=== PATIENT | female | born 1990 | race Caucasian/White ===

== ENCOUNTER 2022-12-23 17:39 | Outpatient (REF) | payer MEDICAID, SELFPAY ==
[2022-12-23 18:43] LABS: Influenza A PCR NEGATIVE (Negative); Influenza B PCR NEGATIVE (Negative); Resp Syncy Virus RNA Qual PCR NEGATIVE (Negative); SARS COV2 PCR INHOUSE NEGATIVE (Negative)
== END 2022-12-23 17:40 | disposition home or self-care (01) ==
LOC: HO.HHCLNP 17:39
PROVIDERS: Visit Provider General Practice
DX: Z20.822 Contact with and (suspected) exposure to COVID-19 (principal); J06.9 Acute upper respiratory infection, unspecified
CPT/HCPCS: 0241U; 87070

== ENCOUNTER 2023-05-02 16:28 | Outpatient (REF) | payer MEDICAID, SELFPAY ==
[2023-05-03 03:15] LABS: CT PCR NOT DETECTED (Not Detect.); NG PCR NOT DETECTED (Not Detect.)
[2023-05-03 13:21] LABS: BV Int Neg Control Negative (Negative); BV Int Pos Control Positive (Positive)
== END 2023-05-02 16:29 | disposition home or self-care (01) ==
LOC: HO.CHCLNP 16:28
PROVIDERS: Visit Provider Advanced Practice Midwife
DX: N89.8 Other specified noninflammatory disorders of vagina (principal)
CPT/HCPCS: 0353U; 87480; 87510; 87660

== ENCOUNTER 2024-10-16 15:25 | Outpatient (REF) | payer MEDICAID, SELFPAY ==
--- OUTSIDE RECORDS SUMMARY | 2024-10-16 16:18 | XMS_ITS | Encounter Summary ---
Author Organization [employer] Address [address] [place] [address] Care Team Providers Care Glass Designer Name Role Phone Jody Bradshaw MD Primary Care Provider [phone] Encounter Details Date Type Department Care Team (Latest Contact Info) Description 10/16/2024 Travel Social History Tobacco Use Types Packs/Day Years Used Date Smoking Tobacco: Former Alcohol Use Standard Drinks/Week Comments Never 0 (1 standard drink = 0.6 oz pur e alcohol) Depression Answer Date Recorded Patient Health Questionnaire-9 Score 5 06/09/2022 Housing Stability Answer Date Recorded What is your housing situation today? I have jaelyn walters 07/26/[address] you li ve. Do you have problems with any of the following? None of the above 07/26/2024 Food Insecurity Answer Date Recorded Within the past 12 months, y ou worried that your food would run out before you got money to buy more: Never True 07/26/2024 Within the past 12 months,th e food you bought just didn't last and you didn't have enough money to get more: Never True Transportation Answer Date Recorded In the past 12 months, has l ack of transportation kept you from medical appts, meetings, work or from getting things needed for daily living? No 07/26/2024 Utilities Answer Date Recorded In the past 12 months, has t he electric, gas, oil or water company threatened to shut off services in your home? No 07/26/2024 Depression Answer Date Recorded Patient Health Questionnaire-2 Score 1 06/09/2022 Internet Access Answer Date Recorded Internet Access Q1 Yes 07/26/2024 Internet Access Q2 Not on file 07/26/2024 Comments No Sex and Gender Information Value Date Recorded Sex Assigned at Female 04/11/2022 10:20 AM EDT Legal Sex Female 10:20 AM EDT Gender Identity Female 04/11/2022 10:20 AM EDT Sexual Orientation Straight 04/11/2022 10 :20 AM EDT documented as of this encounter Plan of Treatment Upcoming Encounters Date Type Department Care Team (Late st Contact Info) Description 01/20/2025 3:30 PM EDT Office Visit [facility] [address] [place] [address] Jody Bradshaw MD [address] [place] [address] documented as of this encounter Visit Diagnoses Not on filedocumented in this encounter Additional Health Concerns Assessment Noted Time PHQ-9 Depression Total Score: 5 06/09/20 22 11:27 AM EST documented as of this encounter Care Teams Glass Designer Relationship Specialty Start Date End Date Jody Bradshaw MD [address] [place] [address] PCP - General Internal Medicine 06/12/18 documented as of this encounter
--- OUTSIDE RECORDS SUMMARY | 2024-10-16 16:19 | XMS_ITS | Encounter Summary ---
Author Organization [employer] Address [address] [place] [address] Care Team Providers Care Life Coach Name Role Phone Jody Bradshaw MD Primary Care Provider [phone] Reason for Visit * Reason Onset Date Comments Nurse Triage 12/05/2023 Encounter Details Date Type Department Care Team (Late st Contact Info) Description 12/05/2023 Telephone [facility] [address] [place] [address] Jody Bradshaw MD [address] [place] [phone] Nurse Triage Social History Tobacco Use Types Packs/Day Years Used Date Smoking Tobacco: Former Alcohol Use Standard Drinks/Week Comments Never 0 (1 standard drink = 0.6 oz pur e alcohol) Depression Answer Date Recorded Patient Health Questionnaire-9 Score 5 06/09/2022 Depression Answer Date Recorded Patient Health Questionnaire-2 Score 1 06/09/2022 Comments No Sex and Gender Information Value Date Recorded Sex Assigned at Female 04/11/2022 10:20 AM EDT Legal Sex Female 10:20 AM EDT Gender Identity Female 04/11/2022 10:20 AM EDT Sexual Orientation Straight 04/11/2022 10 :20 AM EDT documented as of this encounter Miscellaneous Notes * Telephone Encounter - Wing Jaylan RN - 12/06/2023 10:05 AM EDT Tc to pt to relay PCP's message to have pt stop all medication. Unable to reach pt, left message for pt to call back. * Telephone Encounter - Viktoria Foote RN - 12/05/2023 10:07 AM EDT Call returned to [facility] to triage below. Reports having positive home test on 11/21/23. Per pt last known menses was 10/16/23. Per pt already contacted [facility] for establishing. Per pt has appt on 12/10/23. Per pt no bleeding or spotting. Mild cramping. Per pt having nauseain the morning. Per pt stopped Celexa, methocarbamol and trazodone. after positive test. Pt startedprenatal vitamins. No vomiting. Mild loose stools. Pt advised of disposition, agrees to home care advise. Wants PCP to be made aware of meds stopped and to further advise if continues to hold due to . Reviewed home care advise, ER precautions and reasons to call back. Protocol Used: - Morning Sickness (Nausea and Vomiting of ) (Adult) Protocol-Based Disposition: Home Care Positive Triage Question: * Nausea or vomiting * All higher-acuity triage questions were negative Care Advice Discussed: * Reassurance and Education - Nausea and Vomiting During * Step 1 - Clear Fluids * Step 2 - Diet - Crackers * Step 3 - Diet - Starches, Chicken, Fish * Vitamins for * Protect Your Teeth - Rinse Your Mouth After Vomiting * Reasons To Call Back - Moderate vomiting lasts over 3 days - Severe diarrhea occurs (many watery bowel movements) - Fever, abdomen pain, or vaginal bleeding occur - Unable to keep any liquids down - No urination over 12 hours - No improvement after using morning sickness Care Advice - You become worse * Diet Suggestions for Morning Sickness * Reasons To Call Back - You have more questions - Morning Sickness (Nausea and Vomiting of ) handout sent to [phone] * Telephone Encounter - Madelyn Lopez - 12/05/2023 10:04 AM EDT Symptom: Morning Sickness Outcome: Schedule an urgent appointment (within 1 hour) or talk to a nurse or provider soon Reason: Vomiting everything The caller accepted this outcome Pt stated did a test and came out positive pt don't know if symptoms are because pt stop taking medications due to . documented in this encounter Plan of Treatment Upcoming Encounters Date Type Department Care Team ([facility] st Contact Info) Description 01/20/2025 3:30 PM EDT Office Visit [facility] [address] [place] [address] Jody Bradshaw MD [address] [place] [address] documented as of this encounter Visit Diagnoses Not on filedocumented in this encounter Additional Health Concerns Assessment Noted Time PHQ-9 Depression Total Score: 5 06/09/20 22 11:27 AM EST documented as of this encounter Care Teams Life Coach Relationship Specialty Start Date End Date Jody Bradshaw MD [address] [place] [address] PCP - General Internal Medicine 06/12/18 documented as of this encounter
--- OUTSIDE RECORDS SUMMARY | 2024-10-16 16:19 | XMS_ITS | Clinical Summary ---
Author Organization [employer] Address [address] [place] [address] Care Team Providers Care Corporation Officer Name Role Phone Jody Bradshaw MD Primary Care Provider [phone] Allergies Active Allergy Reactions Criticality Noted Date Comments Amoxicillin Hives Low 06/15/2012 Other reaction(s): hives Medications medroxyPROGESTERo ne (Depo-Provera) 150 MG/ML injection inject 1 milliliter by intramuscular route every 3 months. Bring to office for injection 022 Active Multiple Vitamin (Multi-Vitamin) tablet Take 1 tablet by mouth in the morning. 30 tablet 3 023 2028 Active hydrOXYzine HCl (Atarax) 50 MG tabletIndications :Primary insomnia 1 capsule 3 times a day 90 tablet 5 024 Active cetirizine (ZyrTEC) 10 MG tabletIndications :Allergic contact dermatitis due to other agents Take 1 tablet (10 mg) by mouth Once per day. 30 tablet 5 025 Active methocarbamol (Robaxin) 750 MG tabletIndications :Muscle spasm TAKE 1 TABLET BY MOUTH EVERY 8 HOURS 30 tablet 025 Active cholecalciferol (Vitamin D3) 25 MCG (1000 UT) tabletIndications :Vitamin D deficiency Take 1 tablet (25 mcg) by mouth Once per day. 30 tablet 11 025 Active citalopram (CeleXA) 10 MG tabletIndications :Depression, unspecified depression type Take 1 tablet (10 mg) by mouth Once per day. Dose decreased to 10 mg to take x 5 weeks than stop. 15 tablet 052025 Active venlafaxine XR (Effexor XR) 37.5 MG 24 hr capsuleIndication s:Depression, unspecified depression type Take 1 capsule (37.5 mg) by mouth Once per day. Do not crush or chew. 30 capsule 11 2025 Active acetaminophen (Tylenol 8 Hour) 650 MG ER tablet Take 1 tablet by mouth three times a day as needed for pain 2024 Discontinued(T herapy completed) witch jake-glycerin (Tucks) pad use 1 pad twice daily 2024 Discontinued(T herapy completed) Tivicay 50 MG tablet Take 50 mg by mouth in the morning. 2024 Discontinued(T herapy completed) emtricitabine-ten ofovir DF (Truvada) 200-300 MG tablet Take 1 tablet by mouth in the morning. 2024 Discontinued(T herapy completed) ergocalciferol (Vitamin D2) 1.25 MG (72746 UT) capsule TAKE 1 CAPSULE BY MOUTH EVERY WEEK FOR 12 WEEKS 2024 Discontinued(T herapy completed) ketotifen (Zaditor) 0.025 % ophthalmic solutionIndicatio ns:Conjunctivitis of both eyes, unspecified conjunctivitis type Administer 1 drop into both eyes in the morning and at bedtime. 10 mL 2024 Discontinued(T herapy completed) cetirizine (ZyrTEC) 10 MG tabletIndications :Allergic contact dermatitis due to other agents Take 1 tablet (10 mg) by mouth in the morning. 30 tablet 5 2024 Discontinued(R eorder (will not trigger notification to Pharmacy)) cyclobenzaprine (Flexeril) 5 MG tablet Take 5 mg by mouth in the morning. 2024 Discontinued(T herapy completed) cloNIDine (Catapres) 0.1 MG tabletIndications :Primary insomnia Take 1 tablet (0.1 mg) by mouth every 8 (eight) hours. 30 tablet 5 2024 Discontinued(T herapy completed) methocarbamol (Robaxin) 750 MG tabletIndications :Muscle spasm TAKE 1 TABLET BY MOUTH EVERY 8 HOURS 30 tablet 024 2024 Discontinued(S geraldo effects) cholecalciferol (Vitamin D3) 25 MCG (1000 UT) tablet TAKE 1 TABLET BY MOUTH DAILY 90 tablet 1 024 2024 Discontinued(R eorder (will not trigger notification to Pharmacy)) citalopram (CeleXA) 20 MG tablet TAKE 1 TABLET(20 MG) BY MOUTH IN THE MORNING 30 tablet 5 024 2024 Discontinued(T herapy completed) methocarbamol (Robaxin) 750 MG tabletIndications :Muscle spasm TAKE 1 TABLET(750 MG) BY MOUTH EVERY 8 HOURS 30 tablet 024 2024 Discontinued(T herapy completed) traZODone (Desyrel) 50 MG tabletIndications :Primary insomnia TAKE 1 TABLET(50 MG) BY MOUTH AT BEDTIME 30 tablet 3 024 2024 Discontinued(T herapy completed) Active Problems Problem Noted Date Diagnosed Date Cervical dysplasia 12/23/2022 Overview (12/23/2022): Neg ECC. Pap neg/neg. plan repeat pap in 1 year Mayolpo performed - no lesions, ECC onlymultiple attempts to contact for colpo/pap. Does not keep appts. Pap is she shows up. Will not rebook.05/01/14 richie colpoRICHIE colpo; 3rd missed appt. letter sent.message left to rebook. Letter sent.RICHIE colpo.LGSIL/HPV +. Needs colpo.cotesting.pap 02/07/13 = ASCUS +HPV. Cotesting in 6 mon (August 23).cotesting done.05/24/12-cx bx neg x 2; pap neg. repeat pap 6 mo.persistent lgsil/ascus/lgsil/hgsil since 2005. freq n/s for colpo. Depressive disorder 12/23/2022 Female cystocele 12/23/2022 Mixed stress and urge urinary incontinence 12/23 Paronychia of fourth toe, left 05/19/2022 Assessment & Plan (05/19/2022 11:33 AM EST): Mild, recommended soaks with Epsom salt, also send topical mupirocin, will hold off oral antibiotics. Recommended correct nail cutting and to not use tight shoes. rtc if no improvement. Periorbital dermatitis 05/19/2022 Assessment & Plan (05/19/2022 11:38 AM EST): Mild periorbital dermatitis. Will send low dose steroid, f/u with PCP prn Conjunctivitis of both eyes 05/19/2022 Assessment & Plan (05/19/2022 11:38 AM EST): Mild conjunctivitis ddx allergic vs viral. Recommended using ketotifen, f/u for worsening symptoms or no improvement Vitamin D deficiency 07/01/2021 Bruises easily 04/26/2016 Fatigue 04/26/2016 Encounters Date Type Department Care Team Description 10/16/2024 2:45 PM EDT Office Visit [facility] [address] [place], [place] [phone] Jody Bradshaw MD Vitamin D deficiency (Primary Dx); Allergic contact dermatitis due to other agents; Muscle spasm; Depression, unspecified depression type 10/16/2024 Travel 10/16/2024 Patient Outreach [address] [address] Jody Bradshaw MD Care Coordination ([facility] KANWAL Vazquez- Rescheduled missed initial assessment appt) 10/09/2024 Patient Outreach [address] [phone] Jody Bradshaw MD Pre-visit Planning (Pre visit planning LVM ) 10/04/[address] [phone] Jody Bradshaw MD Care Management ([facility] initial assessment-lvm) 10/03/2024 Patient Outreach [address] [phone] Jody Bradshaw MD Care Coordination (KANWAL Dominguez- [place] Appt reminder) 09/05/2024 Patient Outreach [address] [address] Jody Bradshaw MD Care Coordination ([facility]ANWAL Dominguez-R/S missed CM [place]) 09/04/2024 Refill [facility] [address] [place] [address] Jody Bradshaw MD Muscle spasm; Primary insomnia 08/23/2024 Population Health Risk Score [facility] Department [address] [place] [id number] Provider, Population Health Generic 08/22/2024 Patient Outreach [facility] [address] [place] [address] Jody Bradshaw MD Care Coordination ([facility]/KANWAL Nicole#1- Attempt to R/S missed [place] for CM) 08/09/[address] [address] Jody Bradshaw MD Care Management ([facility] initial assessment-lvm) 08/08/2024 Patient Outreach [facility] [address] [place] [address] Jody Bradshaw MD Care Coordination ([facility]/KANWAL Nicole- CM Initial Assessment appt reminder) 07/26/2024 Patient Outreach [facility] [address] [place] [phone] Jody Bradshaw MD Care Coordination (KANWAL Dominguez- Outreach-Pt agrees to participate) 07/24/2024 Patient Outreach [facility] [address] [place] [address] Jody Bradshaw MD Transition Of Care (Tcm) (HDF unscheduled.) 07/23/[address] [address] Kenisha Fuller Care Management ([facility] chart review) 07/23/2024 Telephone [facility] [address] [place] [address] Jody Bradshaw MD from Last 3 Months Immunizations Name Administration Dates Next Due HPV, Quadrivalent 01/20/2012,03/07/2008,04/12/20 07 HPV, Unspecified 01/28/2006 Hep B, Adolescent or Pediatric 1988 Influenza injectable quadriv alent IIV4 with preservative 03/15/2018,04/26/2016 Influenza, IIV3, injectable 04/27/2006 MMR 01/28/1989 Moderna Covid-19 Vaccine 12+ 10/31/2020,10/04/19 21 Tdap 03/15/2018,12/12/2009 Family History Medical History Relation Name Comments Colon cancer Father Postmenopausal breast cancer Father's Sister two paternal aunts, breast cancer in 70s Relation Name Status Comments Father Father's Sister Social History Tobacco Use Types Packs/Day Years [...] Orientation Straight 04/11/2022 10 :20 AM EDT Last Filed Vital Signs Vital Sign Reading Time Taken Comments Blood Pressure 115/73 10/16/2024 2:49 PM EDT Pulse 82 10/16/2024 2:49 PM EDT Temperature 36.7 ??C (98 ??F) 10/16/2024 2:49 PM EDT Respiratory Rate 20 10/16/2024 2:49 PM EDT Oxygen Saturation 98% 10/16/2024 2:49 PM EDT Inhaled Oxygen Concentration - - Weight 88.9 kg (196 lb) 10/16/2024 2:49 PM EDT Height 154.9 cm (5' 1 ) 10/16/2024 2:49 PM EDT Body Mass Index 37.03 10/16/2024 2:49 PM EDT Plan of Treatment Upcoming Encounters Date Type Department Care Team (Late st Contact Info) Description 01/20/2025 3:30 PM EDT Office Visit [facility] [address] [place] [address] Jody Bradshaw MD [address] [place], [place] [phone] Health Maintenance Due Date Last Done Comments Hepatitis B Vaccines (2 of 3 - 3-dose series) 1988 1988 Family Planning (PISQ) 01/28/2003 Pneumococcal Vaccine: Pediatrics (0 to 5 Years) and At-Risk Patients (6 to 49) Years) (1 of 2 - PCV) 01/28/2007 Depression Screening 06/09/2023 06/09/2022, 06/09/20 COVID-19 Vaccine ( season) 2024 10/31/2020, 10/03/2020 Influenza Vaccine (#1) 2024 8, 03/15/2018, 04/26/2016, Additional history exists Tobacco Screening 11/09/2024 11/10/2023 Alcohol/Substance Use Screening 10/16/2025 10/16/2024 SDOH Screening 10/16/2025 10/16/2024 Cervical Cancer Screening 11/01/2025 HPV/Cotest 11/01/2025 11/01/2022, 06/12, 12/03/2019 Pap Smear 11/01/2025 11/01/2022, 06/12, 06/29/2021, Additional history exists DTaP/Tdap/Td Vaccines (4 - Td or Tdap) 05/02/2034 05/02/2024, 03/15/2018, 12/12/2009 Zoster Vaccines (1 of 2) 01/28/2038 RSV Patients and Patients Aged 60 years or older (1 - 1-dose 75+ series) 01/28/2063 HPV Vaccines Completed 01/20/2012, 02/11, 04/12/2007, Additional history exists HIV Screening Completed 11/01/2022, 06/13, 07/01/2021, Additional history exists Hepatitis C Screening Completed 11/01/2022 , 07/01/2021, 07/01/2021 HIB Vaccines Aged Out No longer eligi ble based on patient's age to complete this topic Hepatitis A Vaccines Aged Out No long er eligible based on patient's age to complete this topic IPV Vaccines Aged Out No longer eligi ble based on patient's age to complete this topic Meningococcal Vaccine Aged Out No carlos randolph eligible based on patient's age to complete this topic RSV under 20 months Aged Out No longe r eligible based on patient's age to complete this topic Rotavirus Vaccines Aged Out No longer eligible based on patient's age to complete this topic Procedures Procedure Name Priority Date/Time Associated Diagnosis Comments HEPATITIS C AB W/REFL TO HCV RNA, QN, PCR Routine 11/01/2022 11:58 AM EDT Screening examination for venereal disease HIV 1/2 ANTIGEN/ANTIBODY, FOURTH GENERATION W/RFL Routine 11/01/2022 11:58 AM EDT Screening examination for venereal disease IMAGE-GUIDED PAP W/AGE BASED SCR,W/CT/NG/TRICH Routine 11/01/2022 11:56 AM EDT Routine cervical smear Screening examination for venereal disease from Last 3 Months or Most Recently Relevant to Health Maintenance Results * Hepatitis C Antibody with Reflex to HCV, RNA, Quantitative, Real-Time PCR (11/01/2022 11:58 AM EDT) Hepatitis C Antibody NON-REACT DARRELL NON-REACT DARRELL [facility] [place] [facility] Index 0.07 <1.00 [facility] [place] [facility] Comment: HCV antibody was non-reactive. There is no laboratory evidence of HCV infection. In most cases, no further action is required. However, if recent HCV exposure is suspected, a test for HCV RNA (test code 98713) is suggested. For additional information please refer to http://education.ZeaVision/faq/PMB59d8 (This link is being provided for informational/ educational purposes only.) Blood Venous blood specimen / Unknown 11/01/2022 11:58 AM EDT 11/01/2022 12:03 PM EDT Gisel Nunez [facility] BLOOD ORDERABLES Leonarda rae Result [facility] [address], [place] [address] [facility] [place] [facility] [address] [place] [address] * HIV-1/2 Antigen and Antibodies, Fourth Generation, with Reflexes (11/01/2022 11:58 AM EDT) HIV Antigen/Antibody, 4th Generation NON-REAC TIVE NON-REAC TIVE [facility] [place] [facility] Comment: HIV-1 antigen and HIV-1/HIV-2 antibodies were not detected. There is no laboratory evidence of HIV infection. PLEASE NOTE: This information has been disclosed to you from records whose confidentiality may be protected by state law. ??If your state requires such protection, then the state law prohibits you from making any further disclosure of the information without the specific written consent of the person to whom it pertains, or as otherwise permitted by law. A general authorization for the release of medical or other information is NOT sufficient for this purpose. ?? For additional information please refer to http://education.ZeaVision/faq/GGT287 (This link is being provided for informational/ educational purposes only.) The performance of this assay has not been clinically validated in patients less than 2 years old. Blood Venous blood specimen / Unknown 11/01/2022 11:58 AM EDT 11/01/2022 12:03 PM EDT Gisel Nunez [facility] BLOOD ORDERABLES Leonarda rae Result [facility] [address], [place] [address] [facility] [address] [place] [address] * Image-Guided Pap with Age-Based Screening??with CT/NG,??Trichomonas (11/01/2022 11:56 AM EDT) Comment [facility] Comment: This order for age-based cervical cancer and STI screening follows ACOG guidelines(PB 168, 140, WIP742). See individual assays for performing site location. Clinical Information: NIL/HPV POS 2019 [facility] LMP: NONE GIVEN [facility] Prev. PAP: PRIOR HX ABN [facility] Prev. BX: NEG COLPO [facility] SOURCE: None given [facility] Statement Of Adequacy: [employer] Comment: Satisfactory for evaluation. Endocervical/transformation zone component present. Interpretation/Re sult: Negative for intraepithelial lesion or malignancy. [facility] COMMENT: This Pap test has been evaluated with computer assisted technology. [employer] Outside Maintenance Worker: Yudelka [employer] Comment: YP, CT(ASCP) CT screening location: [address] ??[address] PATHOLOGIST: [facility] Comment: Con Maciel M.D., Board Certified in Anatomic and Clinical Pathology and Cytopathology (electronic signature) [phone] (Always Message) [facility] [employer] [place] [facility] Comment: EXPLANATORY NOTE: The Pap is a screening test for cervical cancer. It is not a diagnostic test and is subject to false negative and false positive results. It is most reliable when a satisfactory sample, regularly obtained, is submitted with relevant clinical findings and history, and when the Pap result is evaluated along with historic and current clinical information. HPV nRNA E6/E7 Not Detected Not Detected [facility] [place] [facility] Comment: Methodology: Silk Opener-Mediated Amplification This assay detects E6/E7 viral messenger RNA (mRNA) from 14 high-risk HPV types (16,18,31,33,35,39,45,51,52,56,58,59,66,68). Cervical sources are required for HPV testing. If a vaginal source from a patient who has had a total hysterectomy with removal of cervix was submitted, please contact the testing laboratory for alternative testing options. For additional information, please refer to http://[employer].ZeaVision/faq/LUW344k5 (This link if provided for information/ educational purposes only.) Chlamydia trachomatis RNA, TMA, Urogenital NOT DETECTED NOT DETECTED [facility] [place] [employer] Neisseria gonorrhoeae RNA, TMA, Urogenital NOT DETECTED NOT DETECTED [facility] (Always Message) [facility] [employer] [place] [facility] Comment: The analytical performance characteristics of this assay, when used to test SurePath(TM) specimens have been determined by [facility]. The modifications have not been cleared or approved by the FDA. This assay has been validated pursuant to the CLIA regulations and is used for clinical purposes. For additional information, please refer to https://[employer].ZeaVision/faq/PRG877 (This link is being provided for information/ educational purposes only.) Trichomonas vaginalis, QL, TMA, PAP Vial NOT DETECTED NOT DETECTED [facility] [place] [facility] Comment: The analytical performance characteristics of this assay have been determined by [facility]. The modifications have not been cleared or approved by the FDA. This assay has been validated pursuant to the CLIA regulations and is used for clinical purposes. For additional information, please refer to http://education.ZeaVision/ faq/Trichomonastma (This link is being provided for information/ educational purposes only.) Pap Vial 11/01/2022 11:5 6 AM EDT 11/02/2022 7:10 AM EDT Gisel Nunez [facility] CYTOLOGY ORDERABLES F inal Result [facility] [address], [place] [address] [facility] [address] [place] [address] from Last 3 Months or Most Recently Relevant to Health Maintenance [place] [address] [address] [place] [id number] [employer] Officer Relationship Specialty Start Date End Date Jody Bradshaw MD [address] [place] [id number] PCP - General Internal Medicine 06/12/18
--- OUTSIDE RECORDS SUMMARY | 2024-10-16 16:19 | XMS_ITS | Encounter Summary ---
Author Organization [employer] Address [address] 7 [place] [address] Care Team Providers Care Ict Trainer Name Role Phone Jody Bradshaw MD Primary Care Provider [phone] Reason for Visit * Reason Onset Date Comments Drug Test 06/16/2023 Encounter Details Date Type Department Care Team ([facility] st Contact Info) Description 06/16/2023 Telephone [facility] [address] [place] [address] Jody Bradshaw MD [address] [place] [address] Drug Test Social History Tobacco Use Types Packs/Day Years [...] encounter Miscellaneous Notes * Telephone Encounter - Mary Lance RN - 06/19/2023 3:53 PM EST Returned call to pt regarding message below. Pt informed that we do not do labs or drug screenings for [facility]. [facility] has specific locations that are approved to do this type of test and cannot be done in PCP office. Pt needs to call [facility] to determine which sites this can be done at. Pt verbalized understanding and agrees with plan. * Telephone Encounter - Mary Ellen Lidnsay - 06/19/2023 1:42 PM EST Tc from pt returning nurse call * Telephone Encounter - Shania Bonds RN - 06/19/2023 12:23 PM EST TC returned to patient regarding message below. No answer. LM to call us back. Tc from pt requesting Labs & drug test for [facility]. Please contact pt at [phone]. * Telephone Encounter - Mathew Lynch - 06/16/2023 2:38 PM EST Tc from pt requesting Labs & drug test for [facility]. Please contact pt at [phone]. documented in this encounter Plan of Treatment Upcoming Encounters Date Type Department Care Team (Late st Contact Info) Description 01/20/2025 3:30 PM EDT Office Visit [facility] [address] [place] [address] Jody Bradshaw MD [address] [place] [address] documented as of this encounter Visit Diagnoses Not on filedocumented in this encounter Additional Health Concerns Assessment Noted Time PHQ-9 Depression Total Score: 5 06/09/20 22 11:27 AM EST documented as of this encounter Care Teams Ict Trainer Relationship Specialty Start Date End Date Jody Bradshaw MD [address] [place] [address] PCP - General Internal Medicine 06/12/18 documented as of this encounter
--- OUTSIDE RECORDS SUMMARY | 2024-10-16 16:19 | XMS_ITS | Clinical Summary ---
[facility] Organization [facility] Address [address] [place] [address] Care Team Providers Care Pediatric Radiologist Name Role Phone Unavailable Primary Care Provider Unavailabl e Social History Tobacco Use Types Packs/Day Years Used Date Smoking Tobacco: Never Assessed Comments Unknown Sex and Gender Information Value Date Recorded Sex Assigned at Not on file Legal Sex Female 4:33 AM EST Gender Identity Not on file Sexual Orientation Not on file Plan of Treatment Health Maintenance Due Date Last Done Comments DTaP,Tdap,and Td Vaccines (1 - Tdap) 01/28/2007 Hepatitis B Vaccines (1 of 3 - 19+ 3-dose series) 01/28/2007 Cervical Cancer Screening: P ap Smear 01/28/2009 COVID-19 Vaccine (2023-2 5 season) 2024 Influenza Vaccine (Season Ended) 2025 HIB Vaccines Aged Out No longer eligi ble based on patient's age to complete this topic HPV Vaccines Aged Out No longer eligi ble based on patient's age to complete this topic Hepatitis A Vaccines Aged Out No long er eligible based on patient's age to complete this topic IPV Vaccines Aged Out No longer eligi ble based on patient's age to complete this topic MMR Vaccines Aged Out No longer eligi ble based on patient's age to complete this topic Meningococcal ACWY Vaccine Aged Out N o longer eligible based on patient's age to complete this topic Meningococcal B Vaccine Aged Out No l onger eligible based on patient's age to complete this topic Pneumococcal Vaccine: Pediat rics (0 to 5 Years) and At-Risk Patients (6 to 64 Years) Aged Out No longer eligible b ased on patient's age to complete this topic RSV Immunization Patients Un glenda 20 months Aged Out No longer eligible b ased on patient's age to complete this topic Varicella Vaccines Aged Out No longer eligible based on patient's age to complete this topic
--- OUTSIDE RECORDS SUMMARY | 2024-10-16 16:19 | XMS_ITS | Encounter Summary ---
Author Organization [employer] Address [address] [facility] 7t [place] [address] Care Team Providers Care Corner Former Name Role Phone Jody Bradshaw MD Primary Care Provider [phone] Reason for Visit * Reason Comments Care Coordination C3CM/KANWAL Duong- Rescheduled missed initial assessment appt Encounter Details Date Type Department Care Team (Latest Contact Info) Description 10/16/2024 Patient Outreach [facility] [address] [place] [address] Jody Bradshaw MD [address] [place] [address] Care Coordination (KANWAL Dominguez- Rescheduled missed initial assessment appt) Social History Tobacco Use Types Packs/Day Years [...] AM EDT documented as of this encounter Progress Notes * Aurelia Lindsay - 10/16/2024 8:56 AM EDT CHW Aurelia Lindsay, placed [facility]bound [facility] to reschedule missed initial assessment appt on 10/04/2024 for CM /CHW program services. Patient's name and was confirmed. Patient agrees to participate in program. New Appt. for initial assessment scheduled for 11/06/2024@ 1PM via telephone with CM Kenisha Fuller RN. CHW reinforced direct contact information for any additionalquestions or concerns and extended clinic hours on Mondays and Wednesdays, and Walk-In Urgent Care Located in [facility]. Patient provided with after-hours line for [facility], , which offer night time triage service and option to transfer to monitor tech provider if needed. Patient verbalizes understanding, and able to repeat back to insurance writer. documented in this encounter Plan of Treatment Upcoming Encounters Date Type Department Care Team ([facility] st Contact Info) Description 01/20/2025 3:30 PM EDT Office Visit [facility] MED & PEDS [address] [place] [address] Jody Bradshaw MD [address] [place] [address] documented as of this encounter Visit Diagnoses Not on filedocumented in this encounter Additional Health Concerns Assessment Noted Time PHQ-9 Depression Total Score: 5 06/09/20 22 11:27 AM EST documented as of this encounter Care Teams Corner Former Relationship Specialty Start Date End Date Jody Bradshaw MD [address] [place] [address] PCP - General Internal Medicine 06/12/18 documented as of this encounter
--- OUTSIDE RECORDS SUMMARY | 2024-10-16 16:19 | XMS_ITS | Encounter Summary ---
Author Organization [employer] Address [address] 7[address] [place] [address] Care Team Providers Care Superintendent Fish Hatchery Name Role Phone Jody Bradshaw MD Primary Care Provider [phone] Encounter Details Date Type Department Care Team (Late st Contact Info) Description 07/23/2024 Telephone [facility]C MED & PEDS [address] [place], [place] [phone] Jody Bradshaw MD [address] [place] [address] Social History Tobacco Use Types Packs/Day Years [...] encounter Miscellaneous Notes * Telephone Encounter - Odette Elizondo - 07/23/2024 10:00 AM EST Tc from pt calling to establish care for her . Pt gave on 07/22/24. Lens Edge Grinder Machine tala bowers a message to hemodialysis patient care specialist. Contact pt at [phone] documented in this encounter Plan of Treatment Upcoming Encounters Date Type Department Care Team (Late st Contact Info) Description 01/20/2025 3:30 PM EDT Office Visit [facility] CHC MED & PEDS [address] [place] [address] Jody Bradshaw MD [address] [place] [address] documented as of this encounter Visit Diagnoses Not on filedocumented in this encounter Additional Health Concerns Assessment Noted Time PHQ-9 Depression Total Score: 5 06/09/20 22 11:27 AM EST documented as of this encounter Care Teams Superintendent [employer] Hatcher[employer] Relationship Specialty Start Date End Date Jody Bradshaw MD [address] [place] [address] PCP - General Internal Medicine 06/12/18 documented as of this encounter
--- OUTSIDE RECORDS SUMMARY | 2024-10-16 16:19 | XMS_ITS | Encounter Summary ---
Author Organization [employer] Address [address] [place] [address] 7 [place] [address] Care Team Providers Care Water Server Name Role Phone Jody Bradshaw MD Primary Care Provider [phone] Reason for Visit * Reason Comments Med Refill Encounter Details Date Type Department Care Team (Late Contact Info) Description 06/14/2023 Refill [facility] MED & PEDS [address] [place] [address] Jody Bradshaw MD [address] [place] [address] Muscle spasm; Primary insomnia Social History Tobacco Use Types Packs/Day Years [...] Encounters Date Type Department Care Team (Late Contact Info) Description 01/20/2025 3:30 PM EDT Office Visit [facility] MED & PEDS [address] [place] [address] Jody Bradshaw MD [address] [place] [address] documented as of this encounter Visit Diagnoses Diagnosis Muscle spasm Spasm of muscle Primary insomnia Persistent disorder of initiating or maintaining sleep documented in this encounter Additional Health Concerns Assessment Noted Time PHQ-9 Depression Total Score: 5 06/09/20 22 11:27 AM EST documented as of this encounter Care Teams Water Server Relationship Specialty Start Date End Date Jody Bradshaw MD [address] [place] [id number] PCP - General Internal Medicine 06/12/18 documented as of this encounter
--- OUTSIDE RECORDS SUMMARY | 2024-10-16 16:19 | XMS_ITS | Encounter Summary ---
Author Organization [employer] Address [address] [facility] 7 [place] [address] Care Team Providers Care Blood Bank Technologist Name Role Phone Jody Bradshaw MD Primary Care Provider [phone] Reason for Visit * Reason Onset Date Comments Nurse Triage 05/02/2023 Encounter Details Date Type Department Care Team ([facility] st Contact Info) Description 05/02/2023 Telephone C [facility] MED & PEDS [address] [place] [address] Jody Bradshaw MD [address] [place] [address] Nurse Triage Social History Tobacco Use Types [...] encounter Miscellaneous Notes * Telephone Encounter - Aretha Castelan RN - 05/02/2023 1:27 PM EST Triage call Pt reports foul odor, yellow vaginal drainage since 04/27/23. Now Pt reports itchiness has gotten worse. Pt has not tried OTC products just wanted to be seen by provider. Apt with ANTONELLA Nunez 05/02/23 @ 345pm Insurance is verified as active prior to booking. Pt agrees with disposition. Protocol Used: Vaginal Symptoms (Adult) Protocol-Based Disposition: See in Office or Video Visit within 3 Days Positive Triage Questions: * Vaginal odor (bad smell) not improved > 3 days following Care Advice * Patient wants to be seen * All higher-acuity triage questions were negative Care Advice Discussed: * Reasons To Call Back - Vaginal discharge becomes yellow or green - Vaginal discharge becomes foul smelling or itchy - Fever or abdomen pain occur - You become worse * Telephone Encounter - Mary Ellen Lindsay - 05/02/2023 1:02 PM EST Symptom: Vaginal Symptoms - Not Bleeding Outcome: Schedule an urgent appointment (within 4 hours) or talk to a nurse or provider soon Reason: Foul-smelling vaginal discharge The caller accepted this outcome Please contact pt at [phone] documented in this encounter Plan of Treatment Upcoming Encounters Date Type Department Care Team (Late st Contact Info) Description 01/20/2025 3:30 PM EDT Office Visit [facility] MED & PEDS [address] [place] [address] Jody Bradshaw MD [address] [place] [address] documented as of this encounter Visit Diagnoses Not on filedocumented in this encounter Additional Health Concerns Assessment Noted Time PHQ-9 Depression Total Score: 5 06/09/20 22 11:27 AM EST documented as of this encounter Care Teams Blood Bank Technologist Relationship Specialty Start Date End Date Jody Bradshaw MD [address] [place] [address] PCP - General Internal Medicine 06/12/18 documented as of this encounter
--- OUTSIDE RECORDS SUMMARY | 2024-10-16 16:19 | XMS_ITS | Encounter Summary ---
Author Organization [employer] Address [address] [facility] 7t [place] [address] Care Team Providers Care Cashier Parking Lot Name Role Phone Jody Bradshaw MD Primary Care Provider [phone] Encounter Details Date Type Department Care Team (Late st Contact Info) Description 06/23/2022 Orders Only [facility] [address] [place] [address] Jody Bradshaw MD [address] [place] [address] Social History Tobacco Use Types Packs/Day Years Used Date Smoking Tobacco: Every Day Cigarettes Alcohol Use Standard Drinks/Week Comments Never 0 (1 standard drink = 0.6 oz pur e alcohol) Depression Answer Date Recorded Patient Health Questionnaire-9 Score 5 06/09/2022 Depression Answer Date Recorded Patient Health Questionnaire-2 Score 1 06/09/2022 Comments Unknown Sex and Gender Information Value Date Recorded Sex Assigned at Female 04/11/2022 10:20 AM EDT Legal Sex Female 10:20 AM EDT Gender Identity Female 04/11/2022 10:20 AM EDT Sexual Orientation Straight 04/11/2022 10 :20 AM EDT COVID-19 Exposure Response Date Recorded In the last 10 days, have yo u been in contact with someone who was confirmed or suspected to have Coronavirus/COVID-19? No / Unsure 06/09/2022 10:41 AM EST documented as of this encounter Plan of Treatment Upcoming Encounters Date Type Department Care Team (Late st Contact Info) Description 01/20/2025 3:30 PM EDT Office Visit [facility] CHC MED & PEDS [address] [place] [address] Jody Bradshaw MD [address] [place] [address] documented as of this encounter Procedures Procedure Name Priority Date/Time Associated Diagnosis Comments SARS COV2/INFLUENZA A/B AND RSV RNA QL NAAT Routine 12/23/2022 2:50 PM EDT CULTURE, THROAT Routine 12/23/2022 2:50 PM EDT documented in this encounter Results * Culture, Throat (12/23/2022 2:50 PM EDT) 12/23/2022 2:50 PM EDT 12/23/2022 6:11 PM EDT Comment:Throat Narrative [facility] - 12/25/2022 12:00 PM EDT Throat Culture No Group A Beta-hemolytic Streptococci isolated. Specimen Source: Throat [facility] Exter nal Provider LAB MICROBIOLOGY - GENERAL ORDERABLES Final Result [facility] [address] [place] [address] [phone] * SARS-CoV-2 RNA, Influenza A/B, and RSV RNA, Ql NAAT (12/23/2022 2:50 PM EDT) Influenza A PCR NEGATIVE Negative [facility] Influenza B PCR NEGATIVE Negative [facility] Resp Syncy Virus RNA Qual PCR NEGATIVE Negative [facility] SARS COV2 PCR NEGATIVE Negative [facility] Comment:All test results mus t be correlated with clinical findings.Negative results do not preclude SARS-CoV2, influenza Avirus, influenza B virus and/or RSV infectionand should not be used as the sole basis for treatment orother patient management decisions. Negative results must becombined with clinical observations, patient history, andepidemiological information.This test has not been evaluated for monitoring treatment ofinfection.This test has been authorized by the FDA under an EmergencyUse Authorization (EUA) for use by authorized laboratories.Testing performed on the [employer] GeneXpert utilizingreal-time RT-PCR.All SARS CoV2 and positive influenza A/B results arereported to JENELLE SIMPSON. 12/23/2022 2:50 PM EDT 12/23/2022 5:42 PM EDT us [facility] Exter nal Provider LAB MICROBIOLOGY - GENERAL ORDERABLES Final Result [facility] [address] [place] [address] [phone] documented in this encounter Visit Diagnoses Not on filedocumented in this encounter Additional Health Concerns Assessment Noted Time PHQ-9 Depression Total Score: 5 06/09/20 22 11:27 AM EST documented as of this encounter Care Teams Cashier Parking Lot Relationship Specialty Start Date End Date Jody Bradshaw MD [address] [place] [id number] PCP - General Internal Medicine 06/12/18 documented as of this encounter
--- OUTSIDE RECORDS SUMMARY | 2024-10-16 16:19 | XMS_ITS | Clinical Summary ---
Author Organization [facility] Address [address] [place] [address] Care Team Providers Care Senior Asset Manager Name Role Phone Unavailable Primary Care Provider Unavailabl e Allergies No known active allergies Social History Tobacco Use Types Packs/Day Years Used Date Smoking Tobacco: Never Assessed Comments Unknown Sex and Gender Information Value Date Recorded Sex Assigned at Not on file Legal Sex Female 3:09 AM EDT Gender Identity Not on file Sexual Orientation Not on file Last Filed Vital Signs Vital Sign Reading Time Taken Comments Blood Pressure 104/67 02/01/2020 5:00 AM EDT Pulse 107 02/01/2020 5:00 AM EDT Temperature 37.1 ??C (98.7 ??F) 02/01/2020 3:11 AM ED T Respiratory Rate 18 02/01/2020 5:00 AM EDT Oxygen Saturation 97% 02/01/2020 5:00 AM EDT Inhaled Oxygen Concentration - - Weight - - Height - - Body Mass Index - - Plan of Treatment Health Maintenance Due Date Last Done Comments Hepatitis C Virus Screening 1990 HIV Screening 01/28/2001 DTaP/Tdap/Td Vaccines (1 - Tdap) 01/28/2007 Hepatitis B Vaccines (1 of 3 - 19+ 3-dose series) 01/28/2007 Pap Smear (Ages 21-65) 01/28/2009 COVID-19 Vaccine (2023-2 5 season) 2024 Influenza Vaccine 01/10/2025 HPV Vaccines Aged Out No longer eligi ble based on patient's age to complete this topic Pneumococcal Vaccine: Pediat liliane (0-5 Years) and At-Risk Patients (6 to 49 Years) Aged Out No longer eligible b ased on patient's age to complete this topic Insurance [place] [facility]
--- OUTSIDE RECORDS SUMMARY | 2024-10-16 16:19 | XMS_ITS | Encounter Summary ---
Author Organization [employer] Address [address] [facility] 7t [place] [address] Care Team Providers Care Crossing Tender Name Role Phone Jody Bradshaw MD Primary Care Provider [phone] Encounter Details Date Type Department Care Team ([facility] st Contact Info) Description 10/16/2024 2:45 PM EDT Office Visit [facility] MED & PEDS [address] [place], [place] [phone] Jody Bradshaw MD [address] [place] [address] Vitamin D deficiency (Primary Dx); Allergic contact dermatitis due to other agents; Muscle spasm; Depression, unspecified depression type Social History Tobacco Use Types Packs/Day Years [...] AM EDT documented as of this encounter Last Filed Vital Signs Vital Sign Reading [...] Mass Index 37.03 10/16/2024 2:49 PM EDT documented in this encounter Plan of Treatment Upcoming Encounters Date Type Department Care Team ([facility] st Contact Info) Description 01/20/2025 3:30 PM EDT Office Visit [facility] MED & PEDS [address] [place] [address] Jody Bradshaw MD [address] [place] [address] Scheduled Orders Name Type Priority Associated Diagnoses Orde r Schedule Comprehensive Metabolic Panel Lab Routine Depression, unspecified depression type Expected: 10/16/2024 (Approximate), Expires: 10/16/2025 CBC auto differential Lab Routine Depression, unspecified depression type Expected: 10/16/2024 (Approximate), Expires: 10/16/2025 TSH W/Reflex to FT4 Lab Routine Depression, unspecified depression type Expected: 10/16/2024 (Approximate), Expires: 10/16/2025 Lipid Panel, Standard Lab Routine Depression, unspecified depression type Expected: 10/16/2024 (Approximate), Expires: 10/16/2025 documented as of this encounter Visit Diagnoses Diagnosis Vitamin D deficiency- Primary Allergic contact dermatitis due to other agents Muscle spasm Spasm of muscle Depression, unspecified depression type documented in this encounter Additional Health Concerns Assessment Noted Time PHQ-9 Depression Total Score: 5 06/09/20 22 11:27 AM EST documented as of this encounter Care Teams Crossing Tender Relationship Specialty Start Date End Date Jody Bradshaw MD [address] [place] [phone] PCP - General Internal Medicine 06/12/18 documented as of this encounter
--- OUTSIDE RECORDS SUMMARY | 2024-10-16 16:19 | XMS_ITS | Encounter Summary ---
Author Organization [employer] Address [address] [place] [address] 7 [place] [address] Care Team Providers Care Piano Stringer Name Role Phone Jody Bradshaw MD Primary Care Provider [phone] Reason for Visit * Reason Comments Med Refill Encounter Details Date Type Department Care Team (Late Contact Info) Description 03/09/2023 Refill [facility] CHC MED & PEDS [address] [place] [address] Jody Bradshaw MD [address] [place] [address] Muscle spasm Social History Tobacco Use Types Packs/Day Years [...] Description 01/20/2025 3:30 PM EDT Office Visit [facility] CHC MED & PEDS [address] [place] [address] Jody Bradshaw MD [address] [place] [address] documented as of this encounter Visit Diagnoses Diagnosis Muscle spasm Spasm of muscle documented in this encounter Additional Health Concerns Assessment Noted Time PHQ-9 Depression Total Score: 5 06/09/20 22 11:27 AM EST documented as of this encounter Care Teams Piano Stringer Relationship Specialty Start Date End Date Jody Bradshaw MD [address] [place] [id number] PCP - General Internal Medicine 06/12/18 documented as of this encounter
[2024-10-16 18:10] LABS: MANUAL DIFF FLAG NO
[2024-10-16 18:18] LABS: Basophils Percent Auto 0.5 % (0-2); Eosinophils Percent Auto 0.5 % (0-4); Hematocrit 41.3 % (37.0-47.0); Hemoglobin 14.6 g/dl (12.0-16.0); Imm Gran Abs Auto 0.01 X10*3/uL (0.00-0.03); Imm Gran Pct Auto 0.2 % (0.0-0.4); Lymphocytes Absolute Auto 2.1 X10*3/uL (1.2-4.9); Lymphocytes Percent Auto 35.3 % (20-40); Mean Corpuscular HGB Conc 35.4 g/dl (31.0-35.0); Mean Corpuscular Hemoglobin 30.6 pg (27.0-33.0); Mean Corpuscular Volume 86.6 fL (80.0-98.0); Mean Platelet Volume 10.8 fL (9.4-12.3); Monocytes Absolute Auto 0.5 X10*3/uL (0.1-1.2); Monocytes Percent Auto 7.7 % (2-11); Neutrophils Absolute Auto 3.3 x10*3/uL (2.0-8.3); Neutrophils Percent Auto 55.8 % (45-73); Platelet Count 206 X10*3/uL (160-400); Red Blood Count 4.77 X10*6/uL (4.20-5.50); Red Cell Distribution Width 12.8 % (11.0-16.0); White Blood Count 5.8 X10*3/uL (4.8-10.8)
[2024-10-16 18:38] LABS: Alanine Aminotransferase 24 U/L (0-31); Albumin Level 4.2 g/dL (3.5-5.0); Alkaline Phosphatase 79 U/L (39-117); Anion Gap 12 (12-20); Aspartate Amino Transferase 26 U/L (5-31); Bilirubin Total 0.8 mg/dL (0.0-1.0); Blood Urea Nitrogen 13 mg/dL (9-16); Calcium 9.7 mg/dL (8.4-10.2); Carbon Dioxide 24 mmol/L (22-29); Chloride 109 mmol/L (96-108); Cholesterol 182 mg/dL (<200); Estimated Glomerular Filt Rate > 60; Glucose Random 86 mg/dL (60-115); HDL Cholesterol 39 mg/dL (>40); LDL Cholesterol Calculated 122 mg/dL (<100); Potassium 4.6 mmol/L (3.3-5.1); Sodium 140 mmol/L (135-145); Total Protein 6.7 g/dL (6.5-8.0); Triglycerides 107 mg/dL (<150)
[2024-10-16 18:57] LABS: TSH reflex Free T4 0.57 uIU/mL (0.32-4.0)
== END 2024-10-16 15:26 | disposition home or self-care (01) ==
LOC: HO.CHCLDS 15:25
PROVIDERS: Visit Provider Internal Medicine
DX: F32.A Depression, unspecified (principal)
CPT/HCPCS: 36415; 80053; 80061; 84443; 85025